=== PATIENT | male | born 1970 | race Caucasian/White ===

== ENCOUNTER 2018-09-24 10:30 | Emergency (ER) | payer OTHER ==
[~2018-09-24] VITALS: Ht 172.7 cm; Wt 68.2 kg
[~2018-09-24 10:30] MED LIST: NO HOME MEDS
[2018-09-24 10:34] VITALS: BP 146/92
--- NOTE | 2018-09-24 10:41 | NUR ---
TRIAGE DELAYED DUE TO, FAMILY FORCING PT. TO BE HER. PA. LEDEZMA SAW THE PT. PT. DENIES HOMICIDAL OR SUICIDAL IDEATIONS. EXPLAINED TO FAMILY THAT THE HOSPITAL CAN NOT FORCE SOMEONE TO BE SEEN... [facility] CALLED WAITING FOR THERE ARRIVAL.
--- NOTE | 2018-09-24 10:43 | NUR ---
PT. CAME BACK IN WITH FAMILY. PT. STATES HE WANTS TO BE SEEN NOW. NURSE IS ATTEMPTING TO TRIAGE PT.
--- NOTE | 2018-09-24 10:59 | NUR ---
[facility] CALLED AND SPOLE WITH PT, TELLING PT THAT HE NEEDED TO BEHAVE OR HE WAS GOING TO PRISON.
--- NOTE | 2018-09-24 10:59 | NUR ---
PT LEFT AND WENT OUTSIDE, FAMILY WAS FOLLOWING HIM ASKLING HIM TO COOME BACK AND GET TREATED. PT IS NOW CURRENTLY IN ROOM AND WANTING TO LEAVE.
--- NOTE | 2018-09-24 11:00 | NUR ---
[facility] AT BEDSIDE, PT IS TRYING TO LEAVE. PT IS WRESTLING WITH [facility] IN LOBBY. [facility] IS TAKING PT OUT OF THE LOBBY. [facility] IS TAKING PT TO HALFWAY.
== END 2018-09-24 11:08 ==
LOC: MERGE 10:31 → ER 10:31
DX: R10.9 Unspecified abdominal pain (principal); R19.7 Diarrhea, unspecified; F91.9 Conduct disorder, unspecified
CPT/HCPCS: 99283

== ENCOUNTER 2018-09-25 02:05 | Emergency (ER) | payer BC, OTHER ==
[~2018-09-25] VITALS: Ht 177.8 cm; Wt 81.8 kg
[2018-09-25] MEDS ORDERED: LORazepam 2 mg/ml vial IV ONE (02:35)
[2018-09-25] MEDS ORDERED: normal saline 1000ML IV soln IVB ONE (02:35)
[2018-09-25 03:08] LABS: BASOPHILS % (AUTO) 0.1 % (0-1); EOSINOPHILS % (AUTO) 0 % (0-6); HEMATOCRIT 46.2 % (42.0-52.0); HEMOGLOBIN 15.3 g/dl (14.0-17.9); LYMPHOCYTES # (AUTO) 0.2 X10'3 (1.1-4.8); LYMPHOCYTES % (AUTO) 2.3 % (21-51); MEAN CORPUSCULAR HEMOGLOBIN 32.7 PG (27.0-31.0); MEAN CORPUSCULAR HGB CONC 33.2 % (33.0-36.5); MEAN CORPUSCULAR VOLUME 98.6 FL (78-98); MEAN PLATELET VOLUME 7.6 FL (7.4-10.4); MONOCYTES # (AUTO) 0.5 X10'3 (0-0.9); MONOCYTES % (AUTO) 4.6 % (2-12); PLATELET COUNT 270 X10'3 (140-440); RED BLOOD COUNT 4.68 X10'6 (4.70-6.10); RED CELL DISTRIBUTION WIDTH 13.3 % (11.5-14.5); WHITE BLOOD COUNT 10.7 X10'3 (4.5-11.0)
[2018-09-25 03:16] LABS: ALANINE AMINOTRANSFERASE 141 U/L (12-78); ALBUMIN 3.6 G/DL (3.4-5.0); ALBUMIN/GLOBULIN RATIO 1.2 (1.1-1.5); ALKALINE PHOSPHATASE 72 IU/L (46-116); ANION GAP 16 (8-16); ASPARTATE AMINO TRANSFERASE 166 U/L (10-37); BILIRUBIN,TOTAL 1.1 MG/DL (0.1-1.0); BLOOD UREA NITROGEN 9 MG/DL (7-18); BUN/CREATININE RATIO 7.8 (5.4-32.0); CALCIUM 8.6 MG/DL (8.5-10.1); CHLORIDE 93 MMOL/L (99-107); CREATININE 1.15 MG/DL (0.60-1.10); ETHANOL < 0.010 GM/DL (0.0-0.010); GLUCOSE 372 MG/DL (70-104); POTASSIUM 3.9 MMOL/L (3.5-5.1); SODIUM 128 MMOL/L (135-145); TOTAL CARBON DIOXIDE 19.2 MMOL/L (24-32); TOTAL PROTEIN 6.7 G/DL (6.4-8.2); eGFR 68 ML/MIN
[2018-09-25 03:32] LABS: CLARITY,URINE CLOUDY (Clear); COLOR,URINE YELLOW (Yellow); GLUCOSE, URINE >=1000 mg/dl (Neg); KETONES,URINE >=80 mg/dl (Neg); LEUKOCYTE ESTERASE ,URINE NEGATIVE (Neg); NITRITES, URINE NEGATIVE (Neg); OCCULT BLOOD,URINE LARGE (Neg); PROTEIN,URINE 30 mg/dl (Neg); UROBILINOGEN,URINE 0.2 E.U/dL (0.2-1.0)
[2018-09-25 03:33] LABS: UA COLLECTION TYPE URINAL
[2018-09-25 03:47] LABS: URINE AMPHETAMINE SCREEN NEGATIVE (Neg); URINE BARBITUATE SCREEN NEGATIVE (Neg); URINE BENZODIAZEPINES SCREEN NEGATIVE (Neg); URINE CANNABINOID SCREEN NEGATIVE (Neg); URINE COCAINE SCREEN NEGATIVE (Neg); URINE METHADONE SCREEN NEGATIVE (Neg); URINE OPIATE SCREEN NEGATIVE (Neg); URINE PHENCYCLIDINE SCREEN NEGATIVE (Neg)
[2018-09-25 03:49] LABS: WBC,URINE 0-4 /HPF (0-4)
[2018-09-25 03:50] LABS: BACTERIA,URINE FEW /HPF (Neg); MUCUS STRANDS FEW /LPF (Neg); SQUAMOUS EPITHELIAL CELL,UR NONE SEEN /LPF (FEW)
[2018-09-25 03:51] LABS: SPERM MANY /HPF (NEGATIVE)
[2018-09-25 04:22] VITALS: BP 150/90
== END 2018-09-25 04:24 | disposition home or self-care (01) ==
LOC: ER 02:06
DX: R56.9 Unspecified convulsions (principal); E86.0 Dehydration; R73.9 Hyperglycemia, unspecified; F17.210 Nicotine dependence, cigarettes, uncomplicated
CPT/HCPCS: 36415; 80053; 80305; 80320; 81001; 83735; 85025; 96361; 96374; 99284; J2060; J7030

== ENCOUNTER 2023-07-23 08:30 | Outpatient (CLI) | payer BC ==
[~2023-07-23 08:30] MED LIST changes: -NO HOME MEDS; +TRAZ-251 PO
[2023-07-23 09:00] LABS: BASOPHILS % (AUTO) 0.4 % (0-1); EOSINOPHILS # (AUTO) 0.1 X10'3 (0-0.9); EOSINOPHILS % (AUTO) 0.5 % (0-6); HEMATOCRIT 49.3 % (42.0-52.0); HEMOGLOBIN 16.9 g/dl (14.0-17.9); LYMPHOCYTES # (AUTO) 0.8 X10'3 (1.1-4.8); LYMPHOCYTES % (AUTO) 7.2 % (21-51); MEAN CORPUSCULAR HEMOGLOBIN 33.4 PG (27.0-31.0); MEAN CORPUSCULAR HGB CONC 34.3 g/dL (33.0-36.5); MEAN CORPUSCULAR VOLUME 97.1 FL (78-98); MEAN PLATELET VOLUME 8.2 FL (7.4-10.4); MONOCYTES # (AUTO) 0.6 X10'3 (0-0.9); MONOCYTES % (AUTO) 4.9 % (2-12); NEUTROPHILS # (AUTO) 10.2 X10'3 (1.8-7.7); PLATELET COUNT 173 X10'3 (140-440); RED BLOOD COUNT 5.08 X10'6 (4.70-6.10); RED CELL DISTRIBUTION WIDTH 12.9 % (11.5-14.5); WHITE BLOOD COUNT 11.7 X10'3 (4.5-11.0)
[2023-07-23 09:51] LABS: ALANINE AMINOTRANSFERASE 24 U/L (12-78); ALBUMIN 3.9 G/DL (3.4-5.0); ALBUMIN/GLOBULIN RATIO 1.3 (1.1-1.5); ALKALINE PHOSPHATASE 64 IU/L (46-116); AMYLASE 62 U/L (25-115); ANION GAP 8 (8-16); ASPARTATE AMINO TRANSFERASE 19 U/L (10-37); BILIRUBIN,TOTAL 0.6 MG/DL (0.1-1.0); BLOOD UREA NITROGEN 8 MG/DL (7-18); BUN/CREATININE RATIO 9.6 (10.0-20.0); CALCIUM 8.8 MG/DL (8.5-10.1); CHLORIDE 102 MMOL/L (99-107); CHOL/HDL RATIO 4.7 (0.00-4.99); CHOLESTEROL 173 MG/DL (0-200); CREATININE 0.83 MG/DL (0.60-1.10); GLUCOSE 123 MG/DL (70-104); HDL CHOLESTEROL 37 MG/DL (35-60); LDL CHOLESTEROL 109 MG/DL (50-100); LIPASE 37 U/L (16-77); POTASSIUM 4.4 MMOL/L (3.5-5.1); SODIUM 137 MMOL/L (135-145); THYROID STIMULATING HORMONE 1.14 ulU/ml (0.34-4.50); TOTAL CARBON DIOXIDE 27.5 MMOL/L (24-32); TOTAL PROTEIN 6.8 G/DL (6.4-8.2); TRIGLYCERIDES 87 MG/DL (20-135); eGFR > 90 ML/MIN
[2023-07-24 09:49] LABS: PROSTATE SPECIFIC AG, SERUM 0.8 ng/mL (0.0-4.0); PSA, FREE 0.16 ng/mL; VITAMIN D, 25-HYDROXY 24.3 ng/mL (30.0-100.0)
== END 2023-07-23 23:59 | disposition home or self-care (01) ==
LOC: LAB 08:30 → RAD 23:59
PROVIDERS: ATTEND Nurse Practitioner Occupational Health
DX: Z00.00 Encounter for general adult medical examination without abnormal findings (principal); I10 Essential (primary) hypertension; Z12.5 Encounter for screening for malignant neoplasm of prostate; E55.9 Vitamin D deficiency, unspecified; R10.9 Unspecified abdominal pain; R10.31 Right lower quadrant pain; N20.0 Calculus of kidney; N28.1 Cyst of kidney, acquired
CPT/HCPCS: 36415; 76700; 76857; 80053; 80061; 82150; 82306; 83690; 84153; 84154; 84439; 84443; 85025